=== PATIENT | female | born 1970 | race Caucasian/White ===

== ENCOUNTER 2023-11-02 07:35 | Observation (INO) | payer OTHER, SELFPAY ==
[2023-11-02] VITALS (12 sets, daily range): BP systolic 118–133; BP diastolic 55–77; PULSE 60–81; RESP 13–21; TEMP 36.1–36.5; O2SAT 95–100; BMI 34.9
--- NOTE | 2023-11-02 | ECHO_ITS ---
Patient Info Name: Rita Mancera Age: 53 years : 1970 Gender: Female Ht: 67 in Wt: 231 lbs BSA: 2.27 m2 HR: 62 bpm BP: 128 / 77 mmHg Heart Rhythm: Sinus Rhythm Technical Quality: Fair Exam Date: 11/02/2023 2:40 PM Exam Location: Echo Lab Patient Status: Outpatient Admit Date: 11/02/2023 Staff Ordering Physician: Virginia Espinoza APRN Electric Switch Tester: Sharif Navarro RDCS Attending Provider: Gerhard Vang MD Referring Physician: Alexis AVILA; Exam Type: CA echo doppler w bubble study Study Info Indications - TIA Complete two-dimensional, color flow and Doppler transthoracic echocardiogram is performed with agitated saline. Contrast/Agitated Saline Contrast/Ag. Saline: Agitated Saline Amount: 14.00 ml IV Access Condition: patent with no signs of infiltration Summary 1. Left ventricular chamber dimension is normal. 2. Left ventricular systolic function is normal, estimated at 65-70%. 3. The left ventricular diastolic function is grade I diastolic dysfunction. 4. Right ventricular systolic function is normal. 5. Intact interatrial septum visualized by color flow and agitated saline imaging. Negative bubble study. 6. There is mild tricuspid valve regurgitation. Left Ventricle Left ventricular chamber dimension is normal. Left ventricular systolic function is normal, estimated at 65-70%. There is no increased left ventricular wall thickness. The left ventricular diastolic function is grade I diastolic dysfunction. Right Ventricle Right ventricular chamber dimension is normal. Right ventricular systolic function is normal. Left Atria Left atrial chamber dimension is normal. Right Atria Right atrial chamber dimension is normal. Atrial Septum Intact interatrial septum visualized by color flow and agitated saline imaging. Negative bubble study. Aortic Valve The aortic valve is trileaflet. There is mild aortic valve sclerosis. There is no aortic valve stenosis. There is no aortic valve regurgitation. Pulmonic Valve The pulmonic valve is not well visualized. There is trace pulmonic regurgitation. Mitral Valve There is trace mitral valve regurgitation. Tricuspid Valve There is mild tricuspid valve regurgitation. Estimated pulmonary arterial systolic pressure is 25 mmHg. Pericardium/Pleural There is no pericardial effusion. Inferior Vena Cava Normal inferior vena cava with >50% collapse upon inspiration consistent with normal right atrial pressure, 3 mmHg. Aorta The aortic root size at the sinus of Valsalva is normal. Left Ventricular Outflow Tract Name Value Normal LVOT 2D LVOT Diameter 1.9 cm LVOT Doppler LVOT Peak Gradient 6 mmHg LVOT Mean Gradient 2 mmHg LVOT VTI 25 cm LVOT VTI/AV VTI Ratio 0.8 LVOT Stroke Volume 72 ml LVOT CO 4.1 l/min LVOT CI 1.8 l/min/m2 Pulmonic Valve Name Value Normal ---
--- NOTE | ~2023-11-02 | CT_ITS ---
EXAMINATION: CT brain wo con DATE: 11/02/2023 07:47 INDICATION: Left hemiparesis. TECHNIQUE: Computed tomography (CT) of the head was performed without intravenous contrast. The mA wa s adjusted according to patient size. Iterative reconstruction technique was employed. The dose-lengt h product was 605.33 mGy-cm. COMPARISON: None FINDINGS: There is no intracranial hemorrhage, acute infarction, or abnormal intracranial mass lesion . The ventricles are normal in size. The orbits are normal. There is mild mucosal thickening in the m axillary sinuses. The mastoid air cells are normal. IMPRESSION: 1. Normal brain. Reviewed, dictated and finalized at location A. IMPRESSION: 1. Normal brain.
--- NOTE | ~2023-11-02 | XR_ITS ---
EXAMINATION: XR chest 1V portable DATE: 11/02/2023 08:23 INDICATION: Cerebrovascular accident. TECHNIQUE: A single frontal view of the chest was obtained. COMPARISON: None. FINDINGS: There is no pneumonia, pleural effusion, or pneumothorax. The heart size is normal. IMPRESSION: 1. No acute cardiopulmonary disease. Reviewed, dictated and finalized at location A.
--- NOTE | ~2023-11-02 | MR_ITS ---
EXAMINATION: MR brain/brain stem wo/w con DATE: 11/02/2023 12:36 INDICATION: Transient ischemic episode with left-sided hemiparesis TECHNIQUE: Magnetic resonance imaging (MRI) of the brain and brainstem was performed without and with 20 mL Multihance intravenous contrast. Sequences included sagittal and axial T1-weighted SE, axial d iffusion-weighted FS SE, axial 3D SWAN, axial T2-weighted FLAIR, and axial T2-weighted FSE. Postcontr ast axial and coronal T1-weighted SE was obtained. Apparent diffusion coefficient (ADC) maps were cre ated. COMPARISON: Head CT and CT angiogram dated 11/02/2023 FINDINGS: There are no areas of restricted diffusion to suggest acute infarction. No intracranial hemorrhage or abnormal intracranial mass lesion. There are a few scattered small foci of nonspecific increased T2- weighted signal intensity in the cerebral white matter, predominantly involving the deep and perivent ricular white matter which is within normal limits for age. There are no intraparenchymal signal abno rmalities seen on the other pulse sequences. The ventricles are symmetric and normal in size. There a re no abnormal extra-axial fluid collections. Flow voids are seen in the cerebral arteries on the T2- weighted sequences consistent with their expected patency. Visualized orbits and soft tissues are unr emarkable. There are no areas of abnormal enhancement on the post contrast images. IMPRESSION: 1. Normal for age brain with a few scattered small foci of nonspecific white matter T2 hyperintensity consistent with chronic small vessel ischemic disease. No acute intracranial process or abnormally e nhancing brain lesions. Reviewed, dictated and finalized at location A. IMPRESSION: 1. Normal for age brain with a few scattered small foci of nonspecific white ma tter T2 hyperintensity consistent with chronic small vessel ischemic disease. N o acute intracranial process or abnormally enhancing brain lesions.
--- NOTE | ~2023-11-02 | CT_ITS ---
EXAMINATION: CTA brain carotid DATE: 11/02/2023 07:54 INDICATION: Left hemiparesis. TECHNIQUE: Computed tomographic angiography (CTA) of the head was performed with 100 mL Omnipaque-350 intravenous contrast. CTA of the neck was performed with intravenous contrast. Automated exposure co ntrol and iterative reconstruction technique were employed. The dose-length product was 1066.55 mGy-c m. Maximum intensity projection and volume rendered 3D-reconstructions were created by the [employer] st on a separate workstation. COMPARISON: Head CT 11/02/2023 FINDINGS: HEAD CTA: There is no intracranial hemorrhage, acute infarction, or abnormal intracranial mass lesion . The ventricles are normal in size. There is mild mucosal thickening in the maxillary sinuses. The o rbits are normal. The mastoid air cells are normal. The vertebral arteries are codominant. There is n o significant stenosis of basilar artery or the posterior cerebral arteries. The posterior communicat ing arteries are normal. There is no significant stenosis of the intracranial internal carotid arteri es or anterior or middle cerebral arteries. There is a 2 mm saccular aneurysm of anterior communicati ng artery. NECK CTA: There are no pathologically enlarged lymph nodes. There is no significant stenosis of the v ertebral arteries. There is no significant plaque in the proximal internal carotid arteries. There is 0% stenosis of the proximal right internal carotid artery relative to normal distal artery lumen shavon meter (NASCET criteria). There is 0% stenosis of the proximal left internal carotid artery relative t o normal distal artery lumen diameter. There is moderate cervical spondylosis. IMPRESSION: 1. Normal brain parenchyma. 2. 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 3. 0% stenosis of the proximal internal carotid arteries relative to normal distal artery lumen diame ters (NASCET criteria). Reviewed, dictated and finalized at location A. IMPRESSION: 1. Normal brain parenchyma. 2. 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 3. 0% stenosis of the proximal internal carotid arteries relative to normal dis mily artery lumen diameters (NASCET criteria).
--- NOTE | 2023-11-02 07:38 | ECG_ITS ---
Test Date: 2023-11-02 07:57:57 Measurements Intervals [place] Rate: 68 P: 50 PA: 196 QRS: 8 QRSD: 94 T: 9 QT: 382 QTc: 407 Interpretive Statements SINUS RHYTHM LOW QRS VOLTAGE IN PRECORDIAL LEADS [QRS DEFLECTION < 1.0 mV IN CHEST LEADS] No previous ECG available for comparison Electronically Signed On 11-02-2023 08:55:18 CDT by Carolina Clemons M.D.
--- NOTE | 2023-11-02 07:43 | ED.NEUROSD ---
HPI - Neuro Symptoms/Deficit General Chief Complaint: Suspected CVA <Alba Rooney MD - Last Filed: 11/02/23 08:07> Stated Complaint: L sided weakness, code stroke <Alba Rooney MD - Last Filed: 11/02/23 08:07> Time Seen by Provider: 11/02/23 07:42 <Alba oRoney MD - Last Filed: 11/02/23 08:07> History of Present Illness HPI Narrative: Patient with history of arthritis, fibromyalgia, hypertension, used to have DM which resolved after gastric bypass weight loss, presents here with new onset left-sided weakness and numbness. Onset around 6:45 a.m. this morning while she was driving her grandson to school, initially started with tingling and numbness to the left face, then spread to her left arm and leg, and then became weakness to her left arm and leg. Has never had a stroke before. <Alba Rooney MD - Last Filed: 11/02/23 08:07> Patient with history of arthritis, fibromyalgia, hypertension, used to have DM which resolved after gastric bypass weight loss, presents here with new onset left-sided weakness and numbness. Onset around 6:45 a.m. this morning while she was driving her grandson to school, initially started with tingling and numbness to the left face, then spread to her left arm and leg, and then became weakness to her left arm and leg. Has never had a stroke before. Patient wake up this morning 5:00 a.m. not feeling well, later started feeling that her throat is closing up, her heart rate went down in the 40s, started feeling dizziness, numbness and tingling left face and left upper extremity with weakness of the lower extremity bilaterally, few minutes later her heart started pounding felt like she is going to pass out and she has been in and out feeling of passing out. The numbness and tingling with 10/10, currently 2/10.. Patient was signed out to me at 8:[address] head without contrast CTA head and neck showed no acute abnormalities Dr. Pineda was consulted, admit to hospitalist <Crystal Mayorga MD - Last Filed: 11/02/23 08:51> Related Data Allergies/Adverse Reactions: Allergies Allergy/AdvReac Type Severity Reaction Status Date / Time acetaminophen [From [place]] Allergy Dyspnea / Verified 11/02/23 08:15 SOB amlodipine Allergy Rash Verified 11/02/23 08:15 azithromycin Allergy Rash Verified 11/02/23 08:15 clindamycin Allergy Rash Verified 11/02/23 08:15 codeine Allergy Dyspnea / Verified 11/02/23 08:15 SOB diltiazem Allergy Nausea and Verified 11/02/23 08:15 Vomiting doxycycline Allergy Rash Verified 11/02/23 08:15 duloxetine Allergy Nausea and Verified 11/02/23 08:15 Vomiting erythromycin base Allergy Rash Verified 11/02/23 08:15 hydrocodone [From [place]] Allergy Dyspnea / Verified 11/02/23 08:15 SOB lisinopril Allergy Nausea and Verified 11/02/23 08:15 Vomiting losartan Allergy Unknown Verified 11/02/23 08:15 morphine Allergy Dyspnea / Verified 11/02/23 08:15 SOB oxycodone [From Percocet] Allergy Dyspnea / Verified 11/02/23 08:15 SOB Sulfa (Sulfonamide Allergy Rash Verified 11/02/23 08:15 Antibiotics) Tetracyclines Allergy Rash Verified 11/02/23 08:15 tobramycin Allergy Rash Verified 11/02/23 08:15 Calcium Channel Blocking AdvReac Dizziness Verified 11/02/23 08:15 Agent Dilt Calcium Channel Blocking AdvReac Dizziness Verified 11/02/23 08:15 Agents-Dih diphenhydramine AdvReac Shakiness Verified 11/02/23 08:15 <Alba Rooney MD - Last Filed: 11/02/23 08:07> Review of Systems Review of Systems: All systems reviewed & are unremarkable except as noted in HPI and below <Alba Rooney MD - Last Filed: 11/02/23 08:07> Exam Narrative: EXAMINATION OF ORGAN SYSTEMS/BODY AREAS: Constitutional: Vital signs per nursing GENERAL: Appears slightly anxious HEAD: Normal with no signs of head trauma. EYES: EOMI, conjunctiva normal ENT: Hearing grossly intact LUNGS: Nonlabored breathing. HEART: [Regular rate and rhythm]
[2023-11-02 07:44] LABS: Glucose Point of Care 134 mg/dl (65-105)
[2023-11-02 07:48] LABS: Estimated Glomerular Filt Rate > 60
[2023-11-02 08:03] LABS: Alanine Aminotransferase 15 U/L (6-35); Albumin Level 4.4 g/dL (3.5-5.1); Alkaline Phosphatase 97 U/L (38-126); Anion Gap 10 mmol/L (4-12); Aspartate Amino Transferase 19 U/L (14-36); Bilirubin,Total 0.4 mg/dL (0.2-1.3); Blood Urea Nitrogen 17 mg/dL (7-17); Calcium 9.3 mg/dL (8.4-10.2); Carbon Dioxide 28 mmol/L (22-30); Chloride 104 mmol/L (98-107); Estimated CRCL calculation 99 ml/min; Estimated Glomerular Filt Rate > 60; Glucose 139 mg/dL (65-110); Potassium 3.6 mmol/L (3.4-5.0); Sodium 142 mmol/L (137-145)
[2023-11-02 08:05] LABS: Basophils Absolute Auto 0.1 K/mm3 (0.0-0.1); Basophils Percent Auto 0.8 % (0.2-1.2); Eosinophils Absolute Auto 0.1 K/mm3 (0-0.3); Eosinophils Percent Auto 1.2 % (0-4.4); Hematocrit 40.8 % (37.0-47.0); Hemoglobin 12.8 g/dL (12.0-15.0); Immature Granulocyte Absolute 0.03 K/mm3 (0.00-0.031); Immature Granulocyte Percent A 0.5 % (0-0.5); Lymphocytes Absolute Auto 1.82 K/mm3 (0.9-3.2); Lymphocytes Percent Auto 27.4 % (18.3-44.2); Mean Corpuscular HGB Conc 31.4 g/dl (32-36); Mean Corpuscular Hemoglobin 26.8 pg (26-34); Mean Corpuscular Volume 85.5 fl (80-100); Mean Platelet Volume 10.9 fl (7.4-10.4); Monocytes Absolute Auto 0.5 K/mm3 (0.1-0.6); Monocytes Percent Auto 7.7 % (2.6-8.5); Neutrophils Absolute Auto 4.2 K/mm3 (1.3-6.7); Neutrophils Percent Auto 62.4 % (45.5-73.1); Platelet Count Result 299 k/mm3 (150-375); Prothrombin Time 13.2 Seconds (11.1-14.7); Red Blood Count 4.77 M/mm3 (4.2-5.4); Red Cell Distribution Width 14.8 % (11.5-14.5); White Blood Count 6.7 K/mm3 (4.5-10.0)
[2023-11-02 08:06] LABS: Partial Thromboplastin Time 32.3 Seconds (22.3-36.8)
[2023-11-02 08:15] LABS: Troponin I < 0.012 ng/mL (0.000-0.034)
[2023-11-02] MEDS: ASPIRIN 81 MG CHEWABLE TABLET 324 MG PO (08:24)
[2023-11-02] MEDS: LORazepam (*CRX) 0.5 MG TABLET 1 MG PO (08:24)
--- NOTE | 2023-11-02 11:24 | ADMGEN ---
This patient, Rita Mancera, was admitted to [facility] Surg Room 325-02. Patient/family oriented to hospital policies and general routines including ID bracelet, bed and alarms, visiting hours, pain management, procedures, bathroom and other care routines, personal items, smoking policy, room service/diet, and visiting hours. Information on how to activate the Rapid Response Team has been discussed. Patient/Family are encouraged to report perceived risks to care and to ask questions if they do not understand what they are told or what they should do. Report from Jasmin in ER.
--- NOTE | 2023-11-02 11:25 | PM.IMHP ---
H&P: [facility] History of Present Illness Date/Time: 11/02/23 11:25 Chief Complaint: Left-sided weakness Narrative: This is a 53-year-old female with a past medical history significant for gastric bypass sleeve, depression, anxiety, migraines, diabetes, hypertension, fibromyalgia, asthma, and psoriatic arthritis who presented to the emergency room via EMS with a constellation of complaints. The patient provides the following history with her at the bedside with her permission. This morning she woke up feeling shaky. She had to take her grand kids to daycare and on her way there she started to have tightness in her chest, she felt like her throat was closing, and she became dizzy. She said she checked her pulse and it was 45 beats per minute. She also reports developing numbness and tingling to the left side of her face and left arm. She arrived at the daycare and upon standing had feelings of her heart racing, wave of heat from her chest to her face, tunnel vision, and feelings of passing out. She was able sit down and asked the staff at the daycare to call 911. She says she has had a previous history of having bilateral upper arm numbness which was attributed to severe hypertension and stress. 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 She has never had unilateral weakness or numbness before. She denies chest pain, shortness a breath, sore throat, runny nose, fever, chills, abdominal pain, nausea, vomiting, diarrhea or constipation. She reports her last bowel movement was this morning 11/01. She lives at home with her , daughter, and 2 grandchildren. She denies any recent sick contact. 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 In the emergency room labs were fairly unremarkable. Chest x-ray showed no acute cardiopulmonary disease. Head CT was negative, head and neck CTA showed 0% stenosis of proximal internal carotid arteries and a 2 mm saccular aneurysm and anterior communicating artery with otherwise normal brain parenchyma. EKG showed a normal sinus rhythm with a rate of 68. Her vital signs were stable. She was admitted for observation for possible TIA with MRI and Neurology consult. Review of Systems Constitutional: Constitutional: Reports as per [facility] Past Medical History Medical History Anxiety Asthma Depression Diabetes Fibromyalgia Hypertension Migraine headache Psoriatic arthritis Surgical History Surgical History H/O breast biopsy with presence of surgical clip H/O gastric sleeve H/O: hysterectomy Hx of cholecystectomy Hx of tonsillectomy Family History Family History Mother Diabetes mellitus Depression Lymphoma in remission Hypertension Asthma Grandparent Anxiety Depression Leukemia Other Anxiety Breast cancer Father Bipolar 1 disorder Social History Social History (Updated 11/02/23 @ 16:15 by Virginia Espinoza APRN) Social History: She lives in [place] with her , daughter, and 2 grandchildren. 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 She follows with a primary care, psychiatrist, and plate shop helper within the [employer] system. Smoking status: Never smoker Alcohol intake: never Substance use: never Do You Feel Safe in your Home?: Yes Lack of Transportation: No Lack of Food: Never True Current Housing: I Have Housing Concerned About Future Housing: No Difficulty Paying Gas/Electric Bills: No Difficulty Paying for Meds: No Currently Unemployed: No Education: Don't Know Difficulty w/ Childcare or Family Care: No Living arrangements: with family Occupation/Education: occupation Additional occupation/education comments: [employer] Gender i
[2023-11-02 12:11] LABS: Cholesterol 270 mg/dL (0-200); HDL Direct 45 mg/dL; Triglycerides 241 mg/dL (<150)
[2023-11-02 12:18] LABS: Hemoglobin A1C 6.4 % (<5.7)
[2023-11-02 12:21] LABS: LDL Cholesterol Direct 150 mg/dL
[2023-11-02 12:41] LABS: Thyroid Stimulating Hormone 0.805 uIU/mL (0.465-4.680)
[2023-11-02 16:12] LABS: Iron 101 ug/dL (37-170)
[2023-11-02 16:21] LABS: Percent Iron Saturation 32 % (20-50)
[2023-11-02] MEDS: cycloSPORINE 0.4 ML OPHTH SOLUTION 1 DROP EACH EYE (16:55)
[2023-11-02] MEDS: PREGABALIN (*CRX) 75 MG CAPSULE PO (16:57)
[2023-11-02] MEDS: CALCIUM CARBONATE (OSCAL) 500 MG TABLET BY MOUTH (16:57)
[2023-11-02 17:19] LABS: Folic Acid 18.2 ng/mL (2.76->20)
[2023-11-02] MEDS: FLUTICASONE/SALMETEROL 230-21 MCG INHALER 1 PUFF 2 PUFF INHALATION (19:48)
[2023-11-02] MEDS: CYCLOBENZAPRINE HCL 10 MG TABLET PO (20:27)
[2023-11-03 00:02] VITALS: PULSE 72
[2023-11-03 04:01] VITALS: PULSE 63
[2023-11-03 05:21] VITALS: BP 113/53; PULSE 68; RESP 16; TEMP 36.5; O2SAT 95
[2023-11-03 07:06] LABS: Red Blood Count 4.37 M/mm3 (4.2-5.4)
[2023-11-03 07:07] LABS: Basophils Absolute Auto 0.1 K/mm3 (0.0-0.1); Basophils Percent Auto 0.8 % (0.2-1.2); Eosinophils Absolute Auto 0.1 K/mm3 (0-0.3); Eosinophils Percent Auto 1.7 % (0-4.4); Hematocrit 37.6 % (37.0-47.0); Hemoglobin 11.5 g/dL (12.0-15.0); Immature Granulocyte Absolute 0.02 K/mm3 (0.00-0.031); Immature Granulocyte Percent A 0.3 % (0-0.5); Lymphocytes Absolute Auto 1.51 K/mm3 (0.9-3.2); Mean Corpuscular HGB Conc 30.6 g/dl (32-36); Mean Corpuscular Hemoglobin 26.3 pg (26-34); Mean Platelet Volume 11.1 fl (7.4-10.4); Monocytes Absolute Auto 0.4 K/mm3 (0.1-0.6); Monocytes Percent Auto 6.3 % (2.6-8.5); Neutrophils Percent Auto 65.9 % (45.5-73.1); Platelet Count Result 261 k/mm3 (150-375); Red Cell Distribution Width 14.7 % (11.5-14.5)
[2023-11-03 07:17] LABS: Alanine Aminotransferase 13 U/L (6-35); Albumin Level 3.9 g/dL (3.5-5.1); Alkaline Phosphatase 96 U/L (38-126); Anion Gap 7 mmol/L (4-12); Aspartate Amino Transferase 19 U/L (14-36); Bilirubin,Total 0.3 mg/dL (0.2-1.3); Blood Urea Nitrogen 14 mg/dL (7-17); Calcium 8.8 mg/dL (8.4-10.2); Carbon Dioxide 28 mmol/L (22-30); Chloride 103 mmol/L (98-107); Estimated CRCL calculation 85 ml/min; Estimated Glomerular Filt Rate > 60; Glucose 112 mg/dL (65-110); Magnesium 1.9 mg/dL (1.6-2.3); Potassium 3.7 mmol/L (3.4-5.0); Sodium 138 mmol/L (137-145)
[2023-11-03 07:50] VITALS: PULSE 77; RESP 18; O2SAT 99
[2023-11-03] MEDS: FLUTICASONE/SALMETEROL 230-21 MCG INHALER 1 PUFF 2 PUFF INHALATION (07:51)
[2023-11-03 09:09] VITALS: PULSE 68
[2023-11-03] MEDS: CHOLECALCIFEROL 1,000 UNITS TABLET 2000 UNITS PO (09:09)
[2023-11-03] MEDS: ASPIRIN 81 MG CHEWABLE TABLET PO (09:09)
[2023-11-03] MEDS: NEBIVOLOL HCL 5 MG TABLET 20 MG PO (09:09)
[2023-11-03] MEDS: PANTOPRAZOLE 40 MG TABLET PO (09:09)
[2023-11-03] MEDS: CALCIUM CARBONATE (OSCAL) 500 MG TABLET BY MOUTH (09:09)
[2023-11-03] MEDS: CYCLOBENZAPRINE HCL 10 MG TABLET PO (09:09)
[2023-11-03] MEDS: LINACLOTIDE 145 MCG CAPSULE PO (09:09)
[2023-11-03] MEDS: MULTIVITAMINS /C LUTEIN (CENTRUM SILVER) TABLET *BKC 1 TAB PO (09:09)
[2023-11-03] MEDS: PREGABALIN (*CRX) 75 MG CAPSULE PO (09:09)
[2023-11-03] MEDS: LORATADINE 10 MG TABLET PO (09:10)
[2023-11-03] MEDS: cycloSPORINE 0.4 ML OPHTH SOLUTION 1 DROP EACH EYE (09:10)
--- NOTE | 2023-11-03 11:28 | WPDNEURCNPN ---
Assessment and Plan Assessment and plan (1) TIA (transient ischemic attack): Code(s): G45.9 - Transient cerebral ischemic attack, unspecified Status: Acute (2) Autonomic neuropathy: Code(s): G90.9 - Disorder of the autonomic nervous system, unspecified Status: Acute Plan 1. Considering the symptoms of dizziness when she is up and about symptomatology could be related to autonomic early neuropathy 2. TIA 3. In addition to all of the medication continue aspirin 81mg daily and follow-up with the neurology office Consult date: 11/03/23 HPI: Rita Mancera is a 53 year old female admitted to the hospital through the emergency room for the complaints of left-sided weakness in addition to the history of 1. Hypertension 2. Arthritis 3. Type 2 diabetes mellitus with subsequent significant recovery 2nd to gastric bypass, as per the information are able she was driving her grandson to the school developed tingling and numbness to the left side of the face with subsequently involved her left upper and left lower extremity and also involved the strength. Patient has not had any stroke in the past or TIA and also has had significant improvement in diabetes care subsequent to gastric bypass her initial CT scan of the head revealed no bleed and CTA revealed no vascular involvement she has been documented to have multiple drug allergies as outlined and her initial exam in the emergency room was only compatible with diminished sensation on the left side her vital signs were normal CBC was normal BMP with blood sugar 139 and hepatic enzymes were normal as well she was admitted to the hospital for the possibility of the stroke and investigations up until now includes the MRI of the brain as well which revealed few scattered small foci of nonspecific white matter. Echocardiogram is known with no evidence of PF over though she has mild tricuspid valve regurgitation Review of Systems Review of Systems: All systems reviewed & are unremarkable except as noted in HPI and below PMFSH Past Medical History Medical History Anxiety Asthma Depression Diabetes Fibromyalgia Hypertension Migraine headache Psoriatic arthritis Surgical History Surgical History H/O breast biopsy with presence of surgical clip H/O gastric sleeve H/O: hysterectomy Hx of cholecystectomy Hx of tonsillectomy Family History Family History Mother Diabetes mellitus Depression Lymphoma in remission Hypertension Asthma Grandparent Anxiety Depression Leukemia Other Anxiety Breast cancer Father Bipolar 1 disorder Social History Social History (Updated 11/02/23 @ 16:15 by Virginia Espinoza APRN) Social History: She lives in [place] with her , daughter, and 2 grandchildren. 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 Smoking status: Never smoker Alcohol intake: never Substance use: never Do You Feel Safe in your Home?: Yes Lack of Transportation: No Lack of Food: Never True Current Housing: I Have Housing Concerned About Future Housing: No Difficulty Paying Gas/Electric Bills: No Difficulty Paying for Meds: No Currently Unemployed: No Education: Don't Know Difficulty w/ Childcare or Family Care: No Living arrangements: with family Occupation/Education: occupation Additional occupation/education comments: RN Gender identity (if verbalized by the patient): Female Spiritual care concerns: No Meds Home Medications and Allergies Home Medications Medication Instructions Recorded Confirmed Type Antacid (calcium carbonate) 500 mg BYMOUTH BID 11/02/23 11/02/23 History cholecalciferol (vitamin D3) 50 50 mcg PO DAILY 11/02/23
--- NOTE | 2023-11-03 12:18 | PM.DS ---
DS: Admitting Diagnosis Discharge Date 11/03/2023 Admitting Diagnosis Paraesthesia of arm and leg/TIA DS: Discharge Diagnosis Discharge Diagnosis (1) Paresthesia of left arm and leg: Code(s): R20.2 - Paresthesia of skin Status: Acute Assessment and Plan: Patient reports left arm and left facial numbness and tingling that occurred this morning accompanied by symptoms concerning for orthostatic hypertension. Her symptoms of numbness and tingling have resolved. Differentials include TIA versus complex migraine versus less likely vitamin B12 deficiency Non con head CT was negative CTA head and neck showed 0% stenosis in the internal carotid arteries. 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 Brain MRI ordered Echo with bubble study ordered TSH, lipid panel, and hemoglobin A1c pending Vitamin B12 and folate studies pending Neurology was consulted recs are appreciated (2) Dizziness: Code(s): R42 - Dizziness and giddiness Status: Acute Assessment and Plan: Patient reports symptoms of dizziness upon standing with elevated heart rate, flushing, and tunnel vision without syncope Orthostatic vitals ordered Vital signs are stable Telemetry ordered EKG shows sinus rhythm in the 60s Home blood pressure medications were reordered Plan Disposition: Discharged to home DS: Summary Hospital Course Reason for hospitalization: Paraesthesia of arm and leg/TIA Hospital Course: Admission: This was a 53-year-old female with a past medical history significant for gastric bypass sleeve, depression, anxiety, migraines, diabetes, hypertension, fibromyalgia, asthma, and psoriatic arthritis who presented to the emergency room via EMS with a constellation of complaints. The patient provides the following history with her at the bedside with her permission. This morning she woke up feeling shaky. She had to take her grand kids to daycare and on her way there she started to have tightness in her chest, she felt like her throat was closing, and she became dizzy. She said she checked her pulse and it was 45 beats per minute. She also reports developing numbness and tingling to the left side of her face and left arm. She arrived at the daycare and upon standing had feelings of her heart racing, wave of heat from her chest to her face, tunnel vision, and feelings of passing out. She was able sit down and asked the staff at the daycare to call 911. She says she has had a previous history of having bilateral upper arm numbness which was attributed to severe hypertension and stress. 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 She has never had unilateral weakness or numbness before. She denies chest pain, shortness a breath, sore throat, runny nose, fever, chills, abdominal pain, nausea, vomiting, diarrhea or constipation. She reports her last bowel movement was this morning 11/01. She lives at home with her , daughter, and 2 grandchildren. She denies any recent sick contact. 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. In the emergency room labs were fairly unremarkable. Chest x-ray showed no acute cardiopulmonary disease. Head CT was negative, head and neck CTA showed 0% stenosis of proximal internal carotid arteries and a 2 mm saccular aneurysm and anterior communicating artery with otherwise normal brain parenchyma. EKG showed a normal sinus rhythm with a rate of 68. Her vital signs were stable. She was admitted for observation for possible TIA with MRI and Neurology consult. 11/03/2023: Discharged Patient symptoms with full resolution on assessment MRI showed normal aging brain and echo with no shunting. Patient lipid panel was elevated as well as A1C of 6.4 started her on Atorvastatin and metformin with plan for follow-
== END 2023-11-03 13:50 | disposition home or self-care (01) ==
LOC: ANHED 08:18 → ANH3MEDSUR 11-03 07:25
PROVIDERS: Emergency Medicine; Nurse Practitioner Acute Care; Admitting Provider Internal Medicine; Emergency Provider Emergency Medicine; PCP Family Medicine; Visit Provider Nurse Practitioner Family
DX: G45.9 Transient cerebral ischemic attack, unspecified (principal); G90.9 Disorder of the autonomic nervous system, unspecified; I10 Essential (primary) hypertension; E11.9 Type 2 diabetes mellitus without complications; I67.1 Cerebral aneurysm, nonruptured; M79.7 Fibromyalgia; R29.702 NIHSS score 2; F41.9 Anxiety disorder, unspecified; F32.A Depression, unspecified; J45.909 Unspecified asthma, uncomplicated; L40.50 Arthropathic psoriasis, unspecified; Z98.84 Bariatric surgery status
CPT/HCPCS: 36415; 70450; 70496; 70498; 70553; 71045; 80053; 80061; 82607; 82746; 82948; 83036; 83540; 83550; 83735; 84443; 84484; 85025; 85610; 85730; 93005; 93306; 94640; 96375; 99285; A9270; A9577; G0378; Q9967